=== PATIENT | female | born 1960 | race Caucasian/White ===

== ENCOUNTER → 2018-10-04 | Outpatient (CLI) | payer BC, OTHER ==
[2018-10-04 15:28] LABS: CALCIUM 9.8 mg/dL (8.5-10.1); POTASSIUM 4.9 mmol/L (3.5-5.1)
--- NOTE | 2018-10-04 16:04 | EKG ---
[place] [address] [employer] [place] [address] ELECTROCARDIOGRAM REPORT Name: MARKGREGGJAIDA Room #: [facility]#: [id number] ������������������ Admission: 10/04/18 ������������������ Attend Phys: Maria Antonia Matos, Discharge: ������������������ Date of : 58 Report #: [id number] ����������������������������������������������������������������� [id number] THIS REPORT FOR: //name// [facility] Test Date: 2018-10-04 Test Time: 15:30:55 Pat Name: JAIDA PARIKH Department: Room: Gender: F Director Of Retention: Amie VELARDE : 1960 Requested By: Maria Antonia Matos Order Number: [id number] MD: Fahad Benavides Measurements Intervals [place] Rate: 70 P: 73 TN: 119 QRS: 58 QRSD: 87 T: 57 QT: 382 QTc: 413 Interpretive Statements Sinus rhythm Borderline short [place] interval Abnormal R-wave progression, early transition No previous ECG available for comparison Electronically Signed On 10-04-2018 16:03:49 CDT by Fahad Benavides [email or web address] ��������������������������������������������� <ELECTRONICALLY SIGNED> ���������������������������������������� By: Fahad Benavides MD ��������������������������������������������� 10/04/18 1603 29 29 Fahad Benavides MD /[email or web address]
== END ==
LOC: LAB 14:58
PROVIDERS: Internal Medicine
DX: Z01.810 Encounter for preprocedural cardiovascular examination (principal)